=== PATIENT | female | born 1975 | race Caucasian/White ===

== ENCOUNTER 2021-04-06 19:16 | Emergency (ER) | payer OTHER, SELFPAY ==
--- NOTE | ~2021-04-06 | XR_ITS ---
EXAMINATION: XR CHEST CLINICAL INFORMATION: Rule out injury. COMPARISON: None TECHNIQUE: PA view of the chest was obtained. FINDINGS: Normal appearance of the cardiomediastinal silhouette. Mild asymmetric haziness in the right lower lobe. Otherwise, clear lungs. No pleural effusions or pneumothorax. No acute osseous findings. Indeterminate surgical clips/coils are partially identified in the left upper quadrant. XR/XR chest 1V IMPRESSION: Questionable asymmetric haziness in the right lung base which could be related with bronchovascular crowding and subsegmental atelectasis. However, an early infiltrate is difficult to exclude and clinical correlation is needed. Clear pleural spaces. No acutely displaced rib fractures.
[2021-04-06 19:22] VITALS: BP 135/83; PULSE 84; RESP 18; TEMP 36.8; O2SAT 97; BMI 26.6
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
[2021-04-06 21:33] VITALS: BP 133/84; PULSE 69; RESP 18; O2SAT 97
[2021-04-06] MEDS: Lidocaine 4 % Patch ADH..PATCH 1 PATCH TRANSDERMA (21:35)
[2021-04-06] MEDS: Azithromycin 500 MG TABLET PO (21:35)
== END 2021-04-06 21:42 | disposition home or self-care (01) ==
LOC: HO.ED 21:40
PROVIDERS: Emergency Provider Emergency Medicine; PCP Internal Medicine
DX: R07.89 Other chest pain (principal); J98.11 Atelectasis; F17.200 Nicotine dependence, unspecified, uncomplicated
CPT/HCPCS: 71045; 99283; 99284